=== PATIENT | male | born 1980 | race Caucasian/White ===

== ENCOUNTER 2017-12-22 19:58 | Inpatient (IN) | END 2017-12-23 11:05 | disposition home or self-care (01) | DRG 395 ==

== ENCOUNTER 2018-02-18 18:48 | Emergency (ER) | END 2018-02-18 21:44 | disposition home or self-care (01) ==

== ENCOUNTER 2018-08-02 18:13 | Emergency (ER) | payer MEDICAID ==
[~2018-08-02] VITALS: Wt 78.9 kg
[~2018-08-02 18:13] MED LIST: HYDR-4011 PO
--- NOTE | 2018-08-02 19:51 | ERD ---
ER Documentation Chief Complaint Chief Complaint bib mother for headache and asthma x 2 days HPI 37-year-old male presents the ED complaining of headache times 4 days. Patient states that the headaches constant, located in the occipital region. He described pain as sharp and pulsating. Patient reports photophobia, but denies vision change. He has similar headaches in the past. Took ibuprofen this morning for pain, only helped briefly. Denies fever or chills. Denies neck pain. Denies one-sided weakness or numbness. ROS All systems reviewed and are negative except as per history of present illness. Medications Home Meds Active Scripts Acetaminophen* (Tylophen*) 500 Mg Capsule, 1 CAP PO Q6H PRN for PAIN AND OR ELEVATED TEMP, #20 CAP Prov:APARNA GARCIA. CHAIN BUILDER 08/02/18 Ibuprofen* (Motrin*) 600 Mg Tab, 600 MG PO Q6H PRN for PAIN AND OR ELEVATED TEMP, #30 TAB Prov:APARNA GARCIA. CHAIN BUILDER 08/02/18 Hydrocodone/Acetaminophen ([place]cher 5-325 Tablet) 1 Each Tablet, 1 TAB PO Q6H PRN for PAIN, #20 TAB Prov:NETTIE WHITING MD 03/17/18 Allergies Allergies: Coded Allergies: No Known Allergy (Unverified , 04/16/15) PMhx/Soc Medical and Surgical Hx: pt denies Surgical Hx History of Surgery: No Anesthesia Reaction: No Hx Neurological Disorder: No Hx Respiratory Disorders: Yes (ASTHMA ) Hx Cardiac Disorders: No Hx Psychiatric Problems: No Hx Miscellaneous Medical Probl: No Hx Alcohol Use: No Hx Substance Use: No Hx Tobacco Use: No Physical Exam Vitals Vital Signs Date Temp Pulse Resp B/P (MAP) Pulse Ox O2 O2 Flow FiO2 Time Delivery Rate 08/02/18 98.6 79 19 130/82 100 18:21 (98) Physical Exam General: Well-developed, well-nourished, conscious and coherent, in no distress Skin: Warm and dry without rash, good texture and turgor Head: Normocephalic without evidence of trauma, nontender Eyes: Sclera and conjunctivae normal; pupils equal, round, and reactive to light; extraocular movements are intact Neck: Supple without meningismus or adenopathy. Carotids are equal. Trachea midline. No bruits or JVD. Bilateral sternocleidomastoid and upper trapezius muscle tension and tenderness. Chest: Normal AP diameter. Good expansion without retractions. Nontender. Lungs are clear to auscultate bilaterally with good tidal volume Heart: Regular rate and rhythm. No murmur, rub, or gallops heard Extremities: Full range of motion. Good strength bilaterally. No erythema, ecchymosis, or edema. Peripheral pulses are intact. Sensation intact Neuro: Alert and oriented 4, GCS 15. Procedures/MDM Patient presents with headache times 4 days. On exam, he is noted to have muscle tension in the bilateral sternocleidomastoid and upper trapezius. Patient history exam findings are consistent with tension headache. I doubt pseudotumor cerebri, meningitis, encephalitis, giant cell arteritis, glaucoma, subarachnoid hemorrhage, subdural or epidural hematoma, intracranial bleeding or tumor. Procedure note: Nerve block Type: Bilateral paraspinous cervical nerve block Nerve block performed by me. 1.5 mL of each 0.25% bupivacaine is injected into bilateral paraspinous cervical region. Total number of injection: 2. Patient reports immediate leave of headache after the injection. Patient appears well, stable for discharge and outpatient management. Patient is advised to apply heating pad, and obtain massage his neck and shoulder to ease his headache. Medical decision making shared with patient and family. Education provided to patient and family. Patient and family expressed understanding of the plan. Medications on discharge: Tylenol, ibuprofen. Follow-up: Primary care provider in 2-3 days or return to ED if worse. Disclaimer: Inadvertent spelling and grammatical errors are likely due to EHR/dictation software use and do not reflect on the overall quality of patient care. Also, please note that the electronic time recorded on this note does not necessarily reflect the actual time of the patient encounter. Departure Diagnosis: Primary Impression: Headache Headache type: tension-type Headache chronicity pattern: acute headache Intractability: not intractable Qualified Codes: G44.209 - Tension-type headache, unspecified, not intractable Condition: Stable APARNA GARCIA NP Aug 02, 2018 19:51
[2018-08-02] MEDS ORDERED: IBUP-1542 PO (20:56)
[2018-08-02] MEDS ORDERED: ACET500C5 PO (20:56)
[2018-08-02 21:07] VITALS: BP 119/83; PULSE 70; RESP 19
== END 2018-08-02 21:08 | disposition home or self-care (01) ==
LOC: FTE 18:13
DX: G44.209 Tension-type headache, unspecified, not intractable (principal); R40.2412 Glasgow coma scale score 13-15, at arrival to emergency department; J45.909 Unspecified asthma, uncomplicated
CPT/HCPCS: 64450; Z7502

== ENCOUNTER 2019-01-21 17:56 | Emergency (ER) | payer SELFPAY ==
[~2019-01-21] VITALS: Ht 170.2 cm; Wt 76.8 kg
[~2019-01-21 17:56] MED LIST changes: +ACET500C5 PO; +IBUP-1542 PO
[2019-01-21 18:10] VITALS: Ht 170.2 cm; Wt 76.8 kg
[2019-01-21] MEDS ORDERED: LORAZEPAM 1 MG TAB PO ONE (19:30)
[2019-01-21] MEDS ORDERED: IBUP-1542 PO (20:16)
[2019-01-21 20:25] VITALS: BP 137/92; PULSE 71; RESP 20
[2019-01-21] MEDS ORDERED: HYDR-843 PO (20:25)
--- NOTE | 2019-01-23 04:52 | ERD ---
ER Documentation Chief Complaint Chief Complaint burning urination x 2 weeks , panic attack earlier today HPI 38-year-old male presents to the emergency department complaining of painful ej aculation for the past 2 weeks intermittently. He also reports having a panic attack earlier today. He denies any homicidal or suicidal ideation. He also reports burning on urination. He denies any chest pain, palpitations, weakness, or other symptoms at this time. Symptoms moderate in severity. No other symptoms reported currently. ROS All systems reviewed and are negative except as per history of present illness. Medications Home Meds Active Scripts Hydroxyzine Hcl* (Hydroxyzine Hcl*) 25 Mg Tablet, 25 MG PO Q8H PRN for ANXIETY, #30 TAB Prov:KATHIE HILTON PA-C 01/21/19 Ibuprofen* (Motrin*) 600 Mg Tab, 600 MG PO Q6, #30 TAB Prov:KATHIE HILTON PA-C 01/21/19 Acetaminophen* (Tylophen*) 500 Mg Capsule, 1 CAP PO Q6H PRN for PAIN AND OR ELEVATED TEMP, #20 CAP Prov:APARNA GARCIA. INFECTION CONTROL SPECIALIST 08/02/18 Ibuprofen* (Motrin*) 600 Mg Tab, 600 MG PO Q6H PRN for PAIN AND OR ELEVATED TEMP, #30 TAB Prov:APARNA GARCIA. INFECTION CONTROL SPECIALIST 08/02/18 Hydrocodone/Acetaminophen ([place] 5-325 Tablet) 1 Each Tablet, 1 TAB PO Q6H PRN for PAIN, #20 TAB Prov:NETTIE WHITING MD 03/17/18 Allergies Allergies: Coded Allergies: No Known Allergy (Unverified , 04/16/15) PMhx/Soc Medical and Surgical Hx: pt denies Surgical Hx History of Surgery: No Anesthesia Reaction: No Hx Neurological Disorder: No Hx Respiratory Disorders: Yes (ASTHMA ) Hx Cardiac Disorders: No Hx Psychiatric Problems: Yes (ANXIETY) Hx Miscellaneous Medical Probl: No Hx Alcohol Use: No Hx Substance Use: No Hx Tobacco Use: No Smoking Status: Never smoker FmHx Family History: No diabetes Physical Exam Vitals Vital Signs Date Temp Pulse Resp B/P (MAP) Pulse Ox O2 O2 Flow FiO2 Time Delivery Rate 01/21/19 98.0 71 20 137/92 99 Room Air 20:25 (107) 01/21/19 98.1 85 16 170/91 99 18:10 (117) Physical Exam Const: No acute distress Head: Atraumatic Eyes: Normal Conjunctiva ENT: Normal External Ears, Nose and Mouth. Neck: Full range of motion. No meningismus. Resp: Clear to auscultation bilaterally Cardio: Regular rate and rhythm, no murmurs Abd: Soft, non tender, non distended. Normal bowel sounds. No rebound tenderness or guarding. No McBurney's point tenderness. Exam: Scrotum: Normal Hernia: None Testes/Epid: Non-tender w/ normal lie Cremaster: Reflex intact Lymph: No inguinal lymphadenopathy Discharge: None Skin: No petechiae or rashes Back: No midline or flank tenderness Ext: No cyanosis, or edema Neur: Awake and alert Psych: Anxious. Denies homicidal or suicidal ideation. Results 24 hrs Laboratory Tests Test 01/21/19 19:41 Bedside Urine pH (LAB) 6.5 Bedside Urine Protein (LAB) Negative Bedside Urine Glucose (UA) Negative Bedside Urine Ketones (LAB) Negative Bedside Urine Blood Negative Bedside Urine Nitrite (LAB) Negative Bedside Urine Leukocyte Esterase (L Negative Current Medications Medications Dose Sig/Liudmila Start Time Status Last (Trade) Ordered Route PRN Stop Time Admin Dose Reason Admin Lorazepam 1 mg ONCE ONCE 01/21/19 DC 01/21/19 (Ativan) PO 19:30 19:38 01/21/19 19:31 Procedures/MDM 38-year-old male presents to the emergency department complaining of dysuria and painful ejaculations. There is no evidence of urinary tract infection. I doubt acute prostatitis, sepsis, serious bacterial infection, surgical abdomen, or other emergencies. Patient was stable and appropriate for discharge and further outpatient management by urology. He was advised to return here immediately for any new, worsening, or concerning symptoms. He was in agreement with the diagnosis, plan, need for follow-up, return precautions. He will be given prescription for hydroxyzine for anxiety and ibuprofen for pain. Patient's blood pressure was elevated (>120/80) but appears stable without evidence of hypertension emergency or urgency. The patient is to follow-up and pursue outpatient monitoring and therapy with their primary care physician within 1 week and return immediately if they have any new, worsening, or concerning symptoms. Departure Diagnosis: Primary Impression: Dysuria Condition: Fair Patient Instructions: Dysuria Referrals: JUAN M,GALESH L. MD DULA,LOREN SOSA,BC ZAPATA,CORNELIO RAMIREZ Additional Instructions: Specialist:Usted tiene sharyn condicin mdica que requiere que saumya a un especialista dentro de los prximos 1-2 murguia.POR FAVOR,CON JOHNSON SEGUIMIENTO DE PRIMARIA PHSICIAN refferal. SI USTED NO TIENE UN MDICO GENERAL Y / O USTED NO PUEDE PAGAR norma a un mdico,los siguientes mclain RECURSOS sido suministrado a usted. ES JOHNSON RESPONSABILIDAD PARA SER VISTOS POR EL ESPECIALISTA: UROLOGY KATHIE HILTON PA-C Jan 23, 2019 04:52
== END 2019-01-21 20:27 | disposition home or self-care (01) ==
LOC: FTE 17:56
DX: R30.0 Dysuria (principal); J45.909 Unspecified asthma, uncomplicated
CPT/HCPCS: 81003; 99283